=== PATIENT | female | born 1955 | race Caucasian/White ===

== ENCOUNTER 2017-03-06 05:47 | Emergency (ER) | payer OTHER ==
[~2017-03-06] VITALS: Ht 152.4 cm; Wt 60.0 kg
[2017-03-06 06:10] VITALS: Ht 152.4 cm; Wt 60.0 kg
--- NOTE | 2017-03-06 06:45 | RADRPT ---
AMENDMENT: 03/06/2017 6:47:54 AM Andre Kelley M.D Addendum: There is a typographical error in both the body and impression. It should read possible old medial right orbital wall fracture. In addition there is a right orbital floor fracture and rec ommend reference to the CT scan of the face report for further evaluation. PROCEDURE: CT Brain without contrast. CLINICAL INDICATION: Trauma TECHNIQUE: CT scan of the brain was performed on a multidetector high-resolution CT scan. Axial im aging was obtained of the brain without contrast administration. Coronal and sagittal reformatted i mages were obtained from the axial source images. Standard CT scan of the head without contrast prot ocols were performed. The total exam CTDI equals 45.01 mGy and the total exam DLP equals 720.23 mGy-cm. One or more of the following dose reduction techniques were used: - Automated exposure control. - Adjustment of the mA and/or kV according to patient size. Use of iterative reconstruction technique. COMPARISON: None. FINDINGS: The ventricular system and peripheral CSF spaces are proportionate prominent consistent with moderat e generalized cerebral volume loss. There is periventricular and subcortical deep white matter cleary ges consistent with chronic microvascular ischemic disease. negative for intracranial masses hemorr hages or midline shift. The bones and calvarium are intact. There is minimal chronic right maxilla ry sinus disease. Old right medial orbital wall fracture. The bones and calvarium are intact. The mastoids are unremarkable. IMPRESSION: 1. Negative for intracranial masses hemorrhages or midline shift. 2. Moderate generalized cerebral volume loss and moderate nonspecific chronic microvascular ischemi c disease. 3. Old medial right orbital wall fracture. No acute calvarial fractures. RPTAT:AAJJ Physician Landon Date Time Electronically viewed and signed by Physician Landon on 03/06/2017 06:50 BM/
--- NOTE | 2017-03-06 06:47 | RADRPT ---
PROCEDURE: Left ankle series CLINICAL INDICATION: Trauma TECHNIQUE: AP lateral and oblique images of the left ankle were obtained COMPARISON: None FINDINGS: There is moderate size posterior plantar calcaneal spur. No evidence of acute fractures or dislocat ions. The bony mineralization is normal. No focal bony blastic or lytic lesions. Soft tissue swel ling involving the left ankle particularly the anterior and lateral aspects of the left ankle. IMPRESSION: 1. No evidence acute fractures or dislocations. 2. Left ankle soft tissue swelling. 3. Left calcaneal spur. RPTAT:AAJJ Physician Landon Date Time Electronically viewed and signed by Physician Landon on 03/06/2017 06:46 MARK/
--- NOTE | 2017-03-06 06:47 | RADRPT ---
PROCEDURE: LEFT HIP - 2 VIEWS CLINICAL INDICATION: 61-year-old female with left hip pain. TECHNIQUE: AP and frog lateral views of the left hip were performed. The images reviewed on a PACS workstation. COMPARISON: None. FINDINGS: There is normal mineralization and alignment. No fracture or osseous lesion is identified. There are normal joints without evidence of arthritis or effusion. No radiopaque foreign body is seen. IMPRESSION: Unremarkable left hip radiographs. .Frederick Aleman MD, MD Date Time Electronically viewed and signed by .Frederick Aleman MD, MD on 03/06/2017 06:46 .M/
--- NOTE | 2017-03-06 06:55 | RADRPT ---
PROCEDURE: CT scan of the facial bones without contrast. CLINICAL INDICATION: fall TECHNIQUE: CT scan of the facial bone without contrast was performed on a multidetector high-reso lution CT scan. Standard CT scan of the facial bone without contrast protocols were performed. The total exam CTDI equals 29.48 mGy and the total exam DLP equals 559.11 mGy-cm. One or more of the following dose reduction techniques were used: - Automated exposure control. - Adjustment of the mA and/or kV according to patient size. Use of iterative reconstruction technique. COMPARISON: CT head earlier same day FINDINGS: There is a right orbital floor fracture with depression of approximately 6 mm. No evidence of entra pment of the inferior right rectus muscle. In addition there is medial bowing of the medial wall of the right orbital wall consistent with fracture which is likely acute. An old medial right orbital wall fracture cannot be excluded. The remainder of the right orbital wall is intact. There are no other facial fractures. The temporomandibular joints are unremarkable. The globes are symmetrical without rupture or proptosis. No evidence of intra or extraconal fluid collections. The optic ther e is mild muscles are symmetrical and unremarkable. There is chronic right maxillary sinus disease. There are no air-fluid levels within the paranasal sinuses. The nasal septum is deviated to the r ight. There is mild right cheek and periorbital soft tissue swelling. There are no radiodense fore ign bodies. IMPRESSION: 1. Acute right orbital floor fracture with depression of approximately 6 mm. No evidence of entrap ment. 2. Fracture of the medial right orbital wall likely acute however an old right medial orbital wall fracture cannot be excluded. 3. No other facial fractures. 4. Right cheek and periorbital soft tissue swelling. 5. The globes are symmetrical without proptosis or retrobulbar are hematomas. 6. No air-fluid levels within the paranasal sinuses. RPTAT:AAJJ Physician Landon Date Time Electronically viewed and signed by Physician Landon on 03/06/2017 06:55 BM/
--- NOTE | 2017-03-06 06:59 | RADRPT ---
PROCEDURE: CT CERVICAL SPINE WITHOUT CONTRAST CLINICAL INDICATION: 61-year-old female with neck pain following trauma. TECHNIQUE: The study was performed utilizing a GE [place] VCT 64-slice CT scanner. Direct axia l sections were obtained through the cervical spine. Coronal and sagittal re-formations were obtain ed. One or more of the following dose reduction techniques were utilized: automated exposure contro l, adjustment of the mA and/or kV according to patient's size or use of iterative reconstruction faustino hnique. The images were viewed on a PACS workstation. CTD/vol = 22.3 mGy; Total Exam DLP = 507.7 mG y-cm. COMPARISON: None. FINDINGS: There is a normal cervical lordosis. The cervical vertebral bodies have normal heights and anatomic alignment. There is no evidence for acute cervical spine fracture. Degenerative changes are seen w ithin the atlantoaxial junction region. At C2-3 there are bilateral uncovertebral degenerative changes resulting in mild left foraminal sten osis. At C3-4 there is mild disk space narrowing. There is posterior disk-osteophyte complex projecting 3 mm beyond the posterior margin. There are bilateral uncovertebral, mild left and marked left-sided facet arthropathy resulting in mild right and moderate left foraminal stenosis. At C4-5 there is mild posterior disk-osteophyte complex projecting approximately 3 mm beyond the pos terior margin. There is mild disk space narrowing. There are bilateral uncovertebral and marked bi lateral facet degenerative changes resulting in klixztei-vm-edzqng right and moderate left foraminal stenosis. At C5-6 there is mild disk space narrowing. There is posterior disk-osteophyte complex projecting 3 mm beyond the posterior margin. There are mild bilateral uncovertebral and mild to moderate bilate ral facet degenerative changes resulting in uuee-be-moorcdjo left foraminal stenosis. At C6-7 there is marked disk space narrowing. There is endplate sclerosis. There is posterior disk -osteophyte complex projecting 4 mm beyond the posterior margin. There are bilateral uncovertebral degenerative changes resulting in moderate right and fbicafyp-st-wwgwot left foraminal stenosis. At C7-T1 the disk space has a normal appearance. There is no significant central or foraminal steno sis. IMPRESSION: 1. No CT evidence for acute cervical spine fracture. 2. Cervical spondylosis. .Frederick Aleman MD, MD Date Time Electronically viewed and signed by .Frederick Aleman MD, MD on 03/06/2017 06:58 .M/
[2017-03-06 07:53] LABS: ADD SCAN DIFF NO
[2017-03-06 07:57] LABS: ABNORMAL IP MESSAGE 1; BASOPHILS % 0.2 % (0.0-2.0); EOSINOPHILS # 0.1 10^3/ul (0.0-0.5); EOSINOPHILS % 1.2 % (0.0-7.0); HEMATOCRIT 38.6 % (37.0-47.0); HEMOGLOBIN 12.9 g/dl (12.0-16.0); LYMPHOCYTES # 1.5 10^3/ul (0.8-2.9); LYMPHOCYTES % 34.8 % (15.0-51.0); MEAN CORPUSCULAR HEMOGLOBIN 33.9 pg (29.0-33.0); MEAN CORPUSCULAR HGB CONC 33.4 g/dl (32.0-37.0); MEAN CORPUSCULAR VOLUME 101.3 fl (82.0-101.0); MONOCYTE # 0.7 10^3/ul (0.3-0.9); MONOCYTES % 16.5 % (0.0-11.0); NEUTROPHILS % 46.6 % (39.0-77.0); RED BLOOD COUNT 3.81 10^6/ul (4.20-5.40); RED CELL DISTRIBUTION WIDTH 16.5 % (11.5-14.5); WHITE BLOOD COUNT 4.2 10^3/ul (4.8-10.8)
[2017-03-06 08:23] LABS: INR 1.39; PARTIAL THROMBOPLASTIN TIME 29.2 Sec (25.0-35.0); PROTIME 17.1 Sec (12.2-14.2); PT RATIO 1.3
[2017-03-06 08:34] LABS: CALCIUM 8.6 mg/dl (8.4-10.2); CREATININE 0.94 mg/dl (0.44-1.00); POTASSIUM 4.3 mmol/L (3.5-5.1)
[2017-03-06] MEDS ORDERED: DOCU-144 PO (08:50)
[2017-03-06] MEDS ORDERED: HYDR-902 PO (08:50)
--- NOTE | 2017-03-06 08:56 | ERD ---
ER Documentation Chief Complaint Date/Time DATE: 03/06/17 TIME: 08:53 Chief Complaint fell out of bed, L ankle and hip pain/bruising/swelling, R eye, neck HPI Patient is a 61-year-old female with seizures and diabetes who presents after a fall. Please note the history and physical exam is limited secondary to the patient's mental status. The patient had a fall and has a bruise over her right eye. She came from a nursing facility. She was brought in by ambulance. Upon review of old medical records this is the patient's first visit to the emergency department. ROS All systems reviewed and are negative except as per history of present illness. Medications Home Meds Active Scripts Docusate Sodium* (Colace*) 100 Mg Capsule, 100 MG PO TID, #30 CAP Prov:KE HOLLAND MD 03/06/17 Hydrocodone/Acetaminophen ([place] 10-325 Tablet) 1 Each Tablet, 1 TAB PO Q6H Y for PAIN, #7 TAB Prov:KE HOLLAND MD 03/06/17 PMhx/Soc Medical and Surgical Hx: Unable to obtain Hx Miscellaneous Medical Probl: Yes (DM, thyroid) Smoking Status: Unknown if ever smoked FmHx Unable to obtain Physical Exam Vitals Vital Signs Date Time Temp Pulse Resp B/P Pulse Ox O2 Delivery O2 Flow Rate FiO2 03/06/17 06:10 97.6 80 20 124/67 95 Physical Exam Const: Bruising to the right face over the right eye Head: Right eye bruising Eyes: Normal Conjunctiva ENT: Normal External Ears, Nose and Mouth. Neck: Full range of motion..~ No meningismus. Resp: Clear to auscultation bilaterally Cardio: Regular rate and rhythm, no murmurs Abd: Soft, non tender, non distended. Normal bowel sounds Skin: Bruising over the right eye Back: No midline or flank tenderness Ext: No cyanosis, or edema Neur: Awake but confused Result Diagram: 03/06/17 0730 03/06/17 0730 Results 24 hrs Laboratory Tests Test 03/06/17 07:30 White Blood Count 4.210^3/ul Red Blood Count 3.8110^6/ul Hemoglobin 12.9g/dl Hematocrit 38.6% Mean Corpuscular Volume 101.3fl Mean Corpuscular Hemoglobin 33.9pg Mean Corpuscular Hemoglobin Concent 33.4g/dl Red Cell Distribution Width 16.5% Platelet Count 4010^3/UL Mean Platelet Volume 9.0fl Neutrophils % 46.6% Lymphocytes % 34.8% Monocytes % 16.5% Eosinophils % 1.2% Basophils % 0.2% Nucleated Red Blood Cells % 0.0/100WBC Neutrophils # 2.010^3/ul Lymphocytes # 1.510^3/ul Monocytes # 0.710^3/ul Eosinophils # 0.110^3/ul Basophils # 0.010^3/ul Nucleated Red Blood Cells # 0.010^3/ul Prothrombin Time 17.1Sec Prothrombin Time Ratio 1.3 INR International Normalized Ratio 1.39 Activated Partial Thromboplast Time 29.2Sec Sodium Level 139mmol/L Potassium Level 4.3mmol/L Chloride Level 106mmol/L Carbon Dioxide Level 28mmol/L Anion Gap 9 Blood Urea Nitrogen 11mg/dl Creatinine 0.94mg/dl Glucose Level 85mg/dl Calcium Level 8.6mg/dl Procedures/MDM CT brain shows no intracranial hemorrhage per radiology. CT facial bones shows a right orbital floor fracture without entrapment per radiology. CT cervical spine shows no fracture per radiology. X-rays are negative per radiology. Patient is a 61-year-old female presents after a fall. She has a right orbital floor fracture but there is no sign of entrapment. At this point I believe outpatient management is appropriate. She will need [place] for pain control and I will give a prescription for Colace. She will be seen by social media content specialist to ensure a safe living environment. She should follow-up with a primary doctor within 24-48 hours for reevaluation. At this point I doubt intracranial mass or intracranial hemorrhage. Departure Diagnosis: Primary Impression: Orbital floor fracture Encounter type: initial encounter Fracture type: closed Laterality: right Qualified Code: S02.31XA - Closed fracture of right orbital floor, initial encounter Additional Impression: Fall Encounter type: initial encounter Qualified Code: W19.XXXA - Fall, initial encounter Condition: Fair Patient Instructions: Facial Fracture, Facial Contusion, With Wakeup, Fall, Uncertain Cause Referrals: Your doctor Additional Instructions: Call your primary care doctor TOMORROW for an appointment during the next 1-2 days.See the doctor sooner or return here if your condition worsens before your appointment time. KE HOLLAND MD Mar 06, 2017 08:56
[2017-03-06 10:03] LABS: PLATELET ESTIMATE PLT APPEAR DECREASED
[2017-03-06 10:27] LABS: ACETAMINOPHEN < 10.0 ug/ml (10.0-30.0); ETHANOL < 10.0 mg/dl; SALICYLATE < 1.0 mg/dl (5.0-30.0)
[2017-03-06 18:30] VITALS: BP 124/102; PULSE 67; RESP 20; TEMP 97.9
[2017-03-07 06:56] LABS: PLATELET COUNT 40 10^3/UL (140-415)
== END 2017-03-06 20:11 | disposition home or self-care (01) ==
LOC: E/R 05:47
DX: S02.31XA Fracture of orbital floor, right side, initial encounter for closed fracture (principal); E11.9 Type 2 diabetes mellitus without complications; R93.0 Abnormal findings on diagnostic imaging of skull and head, not elsewhere classified; W06.XXXA Fall from bed, initial encounter; Y92.9 Unspecified place or not applicable
CPT/HCPCS: 36415; 70450; 70486; 72125; 73510; 73610; 80048; 80306; 85025; 85610; 85730; Z7502; Z7610